=== PATIENT | male | born 1980 | race Caucasian/White ===

== ENCOUNTER 2018-03-18 14:13 | Outpatient (CLI) | payer BC ==
--- NOTE | 2018-03-18 15:42 | RAD ---
LEFT WRIST THREE VIEWS: 03/18/2018 HISTORY: Wrist pain. No history of injury. COMPARISON: None. 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 No first metacarpal is visualized. No normal scaphoid is present. Th ere may be fusion of the scaphoid with the capitate or potentially the distal radius. No acute fract ure or evidence of dislocation. IMPRESSION: 1. Numerous congenital abnormalities, as detailed above. 2. 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 3. 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 4. No acute osseous abnormalities seen. POS: [facility]
== END 2018-03-18 14:14 | disposition home or self-care (01) ==
LOC: BICRAD 14:13
PROVIDERS: ATTEND Family Medicine
DX: M25.532 Pain in left wrist (principal)